=== PATIENT | male | born 1955 | race Caucasian/White ===

== ENCOUNTER 2024-10-11 05:28 | Day surgery (SDC) | payer OTHER ==
[2024-10-08 10:10] VITALS: BMI 30.7
[2024-10-11] MEDS ORDERED: GENTAMICIN SO4 80 MG/2 ML VIAL ONE (13:54)
[2024-10-11] MEDS ORDERED: DEXAMETHASONE SOD PHOSPHATE 4 MG/1 ML VIAL ONE (14:01)
[2024-10-11] MEDS ORDERED: ONDANSETRON 4 MG/2 ML VIAL ONE (14:01)
[2024-10-11] MEDS ORDERED: MIDAZOLAM HCL 2 MG/2 ML SINGLE DOSE VIAL ONE (14:02)
[2024-10-11] MEDS ORDERED: ceFAZolin SODIUM 1 GM VIAL ONE (14:02)
[2024-10-11] MEDS ORDERED: SODIUM CHLORIDE 0.9% P/F 10 ML VIAL IJ ONE (14:03)
[2024-10-11] MEDS: ceFAZolin SODIUM 1 GM VIAL IVPB ONE (14:25)
[2024-10-11] MEDS: GENTAMICIN SO4 80 MG/2 ML VIAL IVPB ONE (14:26)
[2024-10-11 16:47] VITALS: RESP 20; TEMP 97.3
[2024-10-11 16:57] VITALS: BP 149/81; PULSE 72
== END 2024-10-11 16:58 | disposition home or self-care (01) ==
LOC: JASU-SURG 05:28
PROVIDERS: ATTEND Urology
PROC: 0TF3XZZ Fragmentation in Right Kidney Pelvis, External Approach (ICD-10-PCS; principal; 2024-10-11 15:00)
DX: N20.0 Calculus of kidney (principal)

== ENCOUNTER 2025-02-14 12:05 | Emergency (ER) | payer OTHER ==
[2025-02-14 12:27] VITALS: BMI 31.6
[2025-02-14 14:55] LABS: ABSOLUTE IMMATURE GRANULOCYTES 0.02 x10^3/uL (0.0-0.031); BASOPHILS # 0.02 x10^3/uL (0.01-0.08); EOSINOPHIL % 1.6 % (0.8-7.0); EOSINOPHILS # 0.09 x10^3/uL (0.04-0.54); MCHC 33.3 g/dl (32.3-36.5); MEAN CELL VOLUME 98.7 fl (79.0-92.2); MEAN PLT VOLUME 9.1 fl (9.4-12.4); MONOCYTE # 0.43 x10^3/uL (0.30-0.82); MONOCYTE % 7.5 % (5.3-12.2); RDW 13.0 % (12.2-16.4)
[2025-02-14 15:10] LABS: INR 1.04 (0.83-1.09); PROTHROMBIN TIME (PATIENT) 11.4 SEC (9.7-13.0)
[2025-02-14 15:13] LABS: ACTIVATED PTT 27.8 SECONDS (25.2-36.5)
[2025-02-14 15:16] LABS: GLUCOSE,RANDOM 108.0 mg/dL (74-106)
[2025-02-14 15:17] LABS: CO2 26.0 mmol/L (21-32)
[2025-02-14 15:33] VITALS: TEMP 97.9
[2025-02-14 15:38] LABS: ALK PHOS 108.0 U/L (45-117); CREATININE 1.1 mg/dL (0.55-1.3); N-TERMINAL BNP 142.5 pg/ml (5-125); SGOT/AST 26.0 U/L (15-37); SGPT/ALT 32.0 U/L (13-61); TOT PROT 6.8 g/dl (6.4-8.2)
[2025-02-14 17:41] LABS: HCV DIAGNOSTIC IN-HOUSE W/RFLX NON-REACTIVE (NONREACTIVE)
[2025-02-14 17:42] LABS: HIV INTERPRETATION NEGATIVE (NEGATIVE)
[2025-02-14 18:35] VITALS: BP 160/93; PULSE 69; RESP 17
== END 2025-02-14 18:55 | disposition home or self-care (01) ==
LOC: JER 12:05
DX: R06.02 Shortness of breath (principal); R07.2 Precordial pain
CPT/HCPCS: 36415; 71045-TC-FY; 80053; 82550; 82553; 83735; 83880; 84484; 85025; 85610; 85730; 86803; 87389; 87637-QW; 93005; 93010; 99285-25